=== PATIENT | male | born 1960 | race Caucasian/White ===

== ENCOUNTER 2018-01-17 18:46 | Emergency (ER) | payer OTHER ==
[~2018-01-17] VITALS: Ht 182.9 cm; Wt 86.0 kg
[~2018-01-17 18:46] MED LIST: Z.0.NO CURRENT MEDS
[2018-01-17 19:39] VITALS: BP 178/103; PULSE 92; RESP 18; TEMP 98.2; O2SAT 95
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
[2018-01-17] MEDS ORDERED: ORPHENADRINE INJ 60 MG/2 ML AMP IM ONE (20:30)
[2018-01-17] MEDS ORDERED: KETOROLAC TROMETHAMINE 60 MG/2 ML (IM) VIAL IM ONE (20:30)
[2018-01-17] MEDS ORDERED: CYCL10TA PO (20:44)
[2018-01-17] MEDS ORDERED: PRED20 PO (20:44)
[2018-01-17] MEDS ORDERED: HYDR-3516 PO (20:44)
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
== END 2018-01-17 21:21 | disposition home or self-care (01) ==
LOC: NEPK 18:46
DX: S16.1XXA Strain of muscle, fascia and tendon at neck level, initial encounter (principal); V54.6XXA Passenger in pick-up truck or van injured in collision with heavy transport vehicle or bus in traffic accident, initial encounter
CPT/HCPCS: 72125; 96372; 99283; J1885; J2360